=== PATIENT | male | born 1965 | race Two or more races ===

== ENCOUNTER 2024-08-26 17:09 | Emergency (ER) | payer BC, OTHER ==
[~2024-08-26] VITALS: Ht 170.2 cm; Wt 73.9 kg
[2024-08-26 17:11] VITALS: TEMP 98.7
[2024-08-26] MEDS ORDERED: ASPI-992 PO (17:31)
[2024-08-26] MEDS ORDERED: VALS80TA2 PO (17:31)
[2024-08-26] MEDS ORDERED: ROSU10TA2 PO (17:31)
[2024-08-26] MEDS ORDERED: METO75TA PO (17:31)
[2024-08-26] MEDS ORDERED: AMLO-212 PO (17:31)
[2024-08-26] MEDS ORDERED: PANT40TA2 PO (17:31)
[2024-08-26 17:51] LABS: BASOPHILS % (AUTO) 0.1 % (0.0-2.0); EOSINOPHILS # (AUTO) 0.1 K/uL (0.0-0.7); EOSINOPHILS % (AUTO) 0.9 % (0.0-6.0); HEMATOCRIT 32 % (39-51); HEMOGLOBIN 10.5 g/dL (13.5-17.5); LYMPHOCYTES # (AUTO) 1.6 K/uL (0.8-4.8); MEAN CORPUSCULAR HEMOGLOBIN 27 PG (26.0-33.0); MEAN CORPUSCULAR HGB CONC 33 g/dl (31.0-36.0); MEAN CORPUSCULAR VOLUME 81 fL (80-96); MONOCYTES # (AUTO) 1.3 K/uL (0.1-1.30); MONOCYTES % (AUTO) 11.8 % (2.0-12.0); NEUTROPHILS # (AUTO) 7.8 K/uL (1.8-8.9); NEUTROPHILS % (AUTO) 72.2 % (43.0-81.0); PLATELET COUNT (AUTO) 237 K/uL (150-450); RED BLOOD CELL COUNT(AUTO) 3.95 MIL/uL (4.5-6.0); RED CELL DISTRIBUTION WIDTH 14.2 % (11.5-15.0); WHITE BLOOD COUNT (AUTO) 10.9 K/uL (4.3-11.0)
[2024-08-26 17:58] LABS: CALCIUM, SERUM 8.6 mg/dL (8.5-10.1); CREATININE 1.2 mg/dL (0.6-1.3); POTASSIUM 3.8 mmol/L (3.5-5.1)
[2024-08-26] MEDS ORDERED: IOHEXOL-300 100 ML VIAL IV ONE (18:02)
[2024-08-26] MEDS ORDERED: IV NS 0.9% 250 ML IV ONE (18:02)
[2024-08-26 18:04] LABS: ALBUMIN 3.2 g/dL (3.4-5.0); BILIRUBIN,DIRECT 0.3 mg/dL (0.0-0.2); BILIRUBIN,TOTAL 0.6 mg/dL (0.2-1.0); TOTAL PROTEIN, SERUM 7.9 g/dL (6.4-8.2)
[2024-08-26 18:06] LABS: LACTIC ACID 0.8 mmol/L (0.4-2.0)
[2024-08-26 20:08] VITALS: BP 135/89; O2SAT 98
== END 2024-08-26 20:09 | disposition home or self-care (01) ==
LOC: ER 17:11
DX: T81.40XA Infection following a procedure, unspecified, initial encounter (principal); J98.11 Atelectasis; F17.200 Nicotine dependence, unspecified, uncomplicated; Z79.82 Long term (current) use of aspirin; Z79.899 Other long term (current) drug therapy; Z95.1 Presence of aortocoronary bypass graft; Y92.89 Other specified places as the place of occurrence of the external cause
CPT/HCPCS: 99285; 71260; 71045; 93005; 84145; 85025; 80048; 87040 ×2; 83605; 80076; 36415; 36410; J7050; Q9967